=== PATIENT | male | born 1985 | race Two or more races ===

== ENCOUNTER 2020-06-01 03:09 | Emergency (ER) | payer MEDICAID ==
[~2020-06-01] VITALS: Ht 167.6 cm; Wt 100.0 kg
[2020-06-01] MEDS ORDERED: acetaminophen 325mg tablet PO ONE (03:20)
[2020-06-01 04:26] VITALS: BP 110/96
== END 2020-06-01 04:28 | disposition home or self-care (01) ==
LOC: ER 03:10
DX: S83.91XA Sprain of unspecified site of right knee, initial encounter (principal); X58.XXXA Exposure to other specified factors, initial encounter; Y93.89 Activity, other specified; Y92.89 Other specified places as the place of occurrence of the external cause; Y99.8 Other external cause status
CPT/HCPCS: 29505; 73564; 99284